=== PATIENT | male | born 1975 | race Caucasian/White ===

== ENCOUNTER 2017-06-15 20:04 | Emergency (ER) | payer SELFPAY ==
[~2017-06-15] VITALS: Ht 167.6 cm; Wt 95.5 kg
[2017-06-16] MEDS ORDERED: ACETAMINOPHEN 325MG TABLET ONE (04:10)
[2017-06-16] MEDS ORDERED: HYDROCODONE/ACETAMINOPHEN 5/325MG TABLET PO ONE (06:45)
[2017-06-16 11:50] VITALS: BP 107/53
== END 2017-06-16 11:57 | disposition home or self-care (01) ==
LOC: ER 21:54
DX: S00.81XA Abrasion of other part of head, initial encounter (principal); Y04.8XXA Assault by other bodily force, initial encounter; Y93.89 Activity, other specified; Y92.89 Other specified places as the place of occurrence of the external cause; J32.9 Chronic sinusitis, unspecified
CPT/HCPCS: 70450; 70486; 72125; 99284